=== PATIENT | female | born 1935 | race Caucasian/White ===

== ENCOUNTER 2018-03-16 08:22 | Emergency (ER) | payer OTHER, BC ==
[~2018-03-16] VITALS: Ht 167.6 cm; Wt 64.1 kg
[~2018-03-16 08:22] MED LIST: MULT-506 PO; ONDA4TAB7 SL; OXYC7.5T78 PO; ULT/50 PO; WARF4TAB PO; WARF6TAB PO
[2018-03-16 08:30] VITALS: TEMP 36.8; Ht 167.6 cm; Wt 64.1 kg
[2018-03-16 08:49] VITALS: O2SAT 100
[2018-03-16] MEDS ORDERED: ASPI81TA28 PO (09:03)
[2018-03-16 09:09] LABS: BASO % 0.3 %; BASO ABS # 0.01 K/uL (0-0.2); EOS % 2.7 %; EOS ABS # 0.09 K/uL (0-0.5); HEMATOCRIT 43.5 % (37-47); HEMOGLOBIN 14.2 g/dL (12.0-16.0); LYMPH % 27.8 %; LYMPH ABS # 0.93 K/uL (1.2-3.4); MEAN CELL VOLUME 99.8 fL (80-100); MEAN CORPUSCULAR HEMOGLOBIN 32.6 pg (25-34); MEAN CORPUSCULAR HGB CONC 32.6 g/dl (32-36); MEAN PLATELET VOLUME 10.6 fL (7.4-10.4); MONO % 9.3 %; MONO ABS # 0.31 K/uL (0.11-0.59); NEUT % 59.9 %; PLATELET COUNT 212 K/uL (130-400); RED CELL DISTRIBUTION WIDTH CV 14.1 % (11.5-14.5); RED CELL DISTRIBUTION WIDTH SD 51.3 fL (36.4-46.3); WHITE BLOOD COUNT 3.34 K/uL (4.8-10.8)
[2018-03-16 09:20] LABS: INR 0.9 (0.9-1.1); PTT PATIENT 27.1 SECONDS (21.0-31.0)
--- NOTE | 2018-03-16 09:25 | DIAGNOSTIC IMAGING REPORT ---
CHEST ONE VIEW PORTABLE HISTORY: 82 years-old Female Evaluate Fever/Sepsis acute fever with sepsis COMPARISON: Chest radiograph 07/14/2012, CTA chest 07/14/2012 TECHNIQUE: Portable AP view of the chest FINDINGS: Cardiac silhouette is upper limits of normal in size. Mild left hemidiaphragmatic elevation. There is no pneumothorax, pleural effusion or overt pulmonary edema. Mild chronic appearing interstitial coarsening. Degenerative changes of the shoulders and spine. IMPRESSION: No acute process. The above report was generated using voice recognition software. It may contain grammatical, syntax or spelling errors. Electronically signed by: Milad Ospina M.D. 03/16/2018 9:23 AM Dictated Date/Time: 03/16/2018 9:22 AM
[2018-03-16 09:32] LABS: BLOOD UREA NITROGEN 15 mg/dl (7-18); CALCIUM 9.1 mg/dl (8.5-10.1); CARBON DIOXIDE 30 mmol/L (21-32); CKMB 1.1 ng/ml (0.5-3.6); CREATININE 0.77 mg/dl (0.60-1.20); GLUCOSE 106 mg/dl (70-99); LIPASE 215 U/L (73-393); POTASSIUM 3.7 mmol/L (3.5-5.1); SODIUM 141 mmol/L (136-145)
--- NOTE | 2018-03-16 10:38 | EMERGENCY ROOM VISIT NOTE ---
History Report prepared by Rissa: Liban Sims Under the Supervision of: Dr. Romeo Rose D.O. First contact with patient: 08:47 Chief Complaint: PALPITATIONS Stated Complaint: PALPITATIONS, LEFT ARM PAIN Nursing Triage Summary: patient reports she noticed her heart was racing in the middle of the night, only lasted a few secs. no chest pain no shortness of breath. patient denies cardiac history. patient has no symptoms at this time History of Present Illness The patient is an 82 year old female who presents to the Emergency Room with complaints of an episode of "palpitating" in her chest that began last night. She estimates that this sensation was present for a minute or so before she went back to sleep. The patient also notes that she noticed an "achiness" in her left arm. Source of History: patient Onset: Last night Position: chest Quality: other ("palpitating" ) Timing: other (1 minute episode last night) Note: Achiness in her left arm Review of Systems See HPI for pertinent positives & negatives. A total of 10 systems reviewed and were otherwise negative. Past Medical & Surgical No pertinent medical history. Family History Omitted secondary to age. Social History Smoking Status: Never Smoker Housing Status: lives alone Occupation Status: retired Current/Historical Medications Scheduled Aspirin (Aspirin Ec), 81 MG PO DAILY Multivitamin (Multivitamin), 1 TAB PO DAILY Allergies Coded Allergies: Sulfa Drugs (Verified Allergy, Unknown, RASH, 03/16/18) Physical Exam Vital Signs Date Time Temp Pulse Resp B/P (MAP) Pulse Ox O2 Delivery O2 Flow Rate FiO2 03/16/18 10:41 76 21 109/95 99 Room Air 03/16/18 10:30 76 18 143/81 98 Room Air 03/16/18 10:00 70 19 125/79 97 Room Air 03/16/18 09:30 72 15 130/81 100 Room Air 03/16/18 09:00 80 16 137/86 99 Room Air 03/16/18 08:58 80 03/16/18 08:49 100 Room Air 03/16/18 08:49 100 Room Air 03/16/18 08:30 36.8 88 20 160/89 100 Room Air Physical Exam CONSTITUTIONAL/VITAL SIGNS: Reviewed / noted above. GENERAL: Non-toxic in appearance. INTEGUMENTARY: Warm, dry, and [place]. HEAD: Normocephalic. EYES: without scleral icterus or trauma. ENT/OROPHARYNX: clear and moist. LYMPHADENOPATHY/NECK: Is supple without lymphadenopathy or meningismus. RESPIRATORY: Lungs clear and equal. CARDIOVASCULAR: Regular rate and rhythm. GI/ABDOMEN: Soft and nontender. No organomegaly or pulsatile mass. No rebound or guarding. Normal bowel sounds. EXTREMITIES: Warm and well perfused. BACK: No CVA tenderness. NEUROLOGICAL: Intact without focal deficits. PSYCHIATRIC: normal affect. MUSCULOSKELETAL: Normally developed with good muscle tone. Medical Decision & Procedures ER Provider Diagnostic Interpretation: Radiology results as stated below per my review and radiologist interpretation: CHEST ONE VIEW PORTABLE HISTORY: 82 years-old Female Evaluate Fever/Sepsis acute fever with sepsis COMPARISON: Chest radiograph 07/14/2012, CTA chest 07/14/2012 TECHNIQUE: Portable AP view of the chest FINDINGS: Cardiac silhouette is upper limits of normal in size. Mild left hemidiaphragmatic elevation. There is no pneumothorax, pleural effusion or overt pulmonary edema. Mild chronic appearing interstitial coarsening. Degenerative changes of the shoulders and spine. IMPRESSION: No acute process. The above report was generated using voice recognition software. It may contain grammatical, syntax or spelling errors. Electronically signed by: Milad Ospina M.D. 03/16/2018 9:23 AM Dictated Date/Time: 03/16/2018 9:22 AM Laboratory Results 03/16/18 08:45 Red Blood Count 4.36, Mean Corpuscular Volume 99.8, Mean Corpuscular Hemoglobin 32.6, Mean Corpuscular Hemoglobin Concent 32.6, Mean Platelet Volume 10.6, Neutrophils (%) (Auto) 59.9, Lymphocytes (%) (Auto) 27.8, Monocytes (%) (Auto) 9.3, Eosinophils (%) (Auto) 2.7, Basophils (%) (Auto) 0.3, Neutrophils # (Auto) 2.00, Lymphocytes # (Auto) 0.93, Monocytes # (Auto) 0.31, Eosinophils # (Auto) 0.09, Basophils # (Auto) 0.01 03/16/18 08:45 Test 03/16/18 08:45 White Blood Count 3.34 K/uL (4.8-10.8) Red Blood Count 4.36 M/uL (4.2-5.4) Hemoglobin 14.2 g/dL (12.0-16.0) Hematocrit 43.5 % (37-47) Mean Corpuscular Volume 99.8 fL (80-100) Mean Corpuscular Hemoglobin 32.6 pg (25-34) Mean Corpuscular Hemoglobin Concent 32.6 g/dl (32-36) Platelet Count 212 K/uL (130-400) Mean Platelet Volume 10.6 fL (7.4-10.4) Neutrophils (%) (Auto) 59.9 % Lymphocytes (%) (Auto) 27.8 % Monocytes (%) (Auto) 9.3 % Eosinophils (%) (Auto) 2.7 % Basophils (%) (Auto) 0.3 % Neutrophils # (Auto) 2.00 K/uL (1.4-6.5) Lymphocytes # (Auto) 0.93 K/uL (1.2-3.4) Monocytes # (Auto) 0.31 K/uL (0.11-0.59) Eosinophils # (Auto) 0.09 K/uL (0-0.5) Basophils # (Auto) 0.01 K/uL (0-0.2) RDW Standard Deviation 51.3 fL (36.4-46.3) RDW Coefficient of Variation 14.1 % (11.5-14.5) Immature Granulocyte % (Auto) 0.0 % Immature Granulocyte # (Auto) 0.00 K/uL (0.00-0.02) Prothrombin Time 9.9 SECONDS (9.0-12.0) Prothromb Time International Ratio 0.9 (0.9-1.1) Activated Partial Thromboplast Time 27.1 SECONDS (21.0-31.0) Partial Thromboplastin Ratio 1.0 Anion Gap 4.0 mmol/L (3-11) Est Creatinine Clear Calc Drug Dose 52.7 ml/min Estimated GFR () 83.3 Estimated GFR (Non- 71.9 BUN/Creatinine Ratio 19.3 (10-20) Calcium Level 9.1 mg/dl (8.5-10.1) Total Creatine Kinase 159 U/L (26-192) Creatine Kinase MB 1.1 ng/ml (0.5-3.6) Creatine Kinase MB Ratio 0.7 (0-3.0) Troponin I < 0.015 ng/ml (0-0.045) Lipase 215 U/L (73-393) Laboratory results as stated above per my review. ECG Per My Interpretation Rate (beats per minute): 87 Rhythm: normal sinus Findings: no ectopy, other (NO SANJU, no PVCs) Comparison ECG Date: 07/14/2012 Change: no significant change ED Course 0853: Previous medical records were reviewed. The patient was evaluated in room B3B. A complete history and physical examination was performed. 1039: On reevaluation, the patient is resting in bed. I discussed the results and findings with the patient. She verbalized agreement of the treatment plan. The patient was discharged home. Medical Decision the differential was considered includes acute myocardial infarction, acute coronary syndrome, myocarditis, pericarditis, pericardial effusions /tamponad, esophageal perforation, thoracic aortic dissection, pulmonary embolism, pneumonia, pneumothorax, pancreatitis, shingles, acute cholecystitis, perforated abdominal viscus. This is an 82-year-old female who presents to the ED with a chief complaint of palpitations. The patient states that her symptoms started around midnight last night lasted for about 1-2 minutes. She reported some associated left arm achiness as well. She has been asymptomatic since. Her blood pressure was slightly elevated. Her physical exam was normal. CBC and complete metabolic panel was normal, troponin was negative and a chest x-ray was negative for acute disease. The patient was told the results of the test. She is felt to be stable for discharge and outpatient follow-up. Medication Reconcilliation Current Medication List: was personally reviewed by me Blood Pressure Screening Patient's blood pressure: Elevated blood pressure Blood pressure disposition: Elevated BP felt to be situational Impression Primary Impression: Palpitations Scribe Attestation The scribe's documentation has been prepared under my direction and personally reviewed by me in its entirety. I confirm that the note above accurately reflects all work, treatment, procedures, and medical decision making performed by me. Departure Information Dispostion Home / Self-Care Patient Instructions ED Palpitations, My [facility] Additional Instructions Follow-up with your doctor for further care and evaluation in 1-4 days if symptoms persist. Return to the emergency department for worsening or new symptoms or any concerns. You have been examined and treated today on an emergency basis only. This is not a substitute for, or an effort to provide, complete comprehensive medical care. It is impossible to recognize and treat all injuries or illnesses in a single emergency department visit. It is therefore important that you follow up closely with your doctor. Call as soon as possible for an appointment.
[2018-03-16 10:41] VITALS: BP 109/95; PULSE 76; O2SAT 99
== END 2018-03-16 11:02 | disposition home or self-care (01) ==
LOC: MERGE 08:25 → C.EDB 08:25
DX: R00.2 Palpitations (principal); Z79.82 Long term (current) use of aspirin; Z88.2 Allergy status to sulfonamides